=== PATIENT | male | born 2000 | race Two or more races ===

== ENCOUNTER 2024-04-14 14:52 | Observation (INO) | payer BC, SELFPAY ==
[2024-04-14 14:54] VITALS: BMI 35.4
[2024-04-14 15:30] VITALS: BP 167/91; PULSE 115; RESP 18; TEMP 37; O2SAT 97; BMI 41.7
--- NOTE | 2024-04-14 15:36 | EDRME_ITS ---
Rapid Medical Screening Exam [facility] Arrival date/time: 04/14/24 14:52 24-year-old male with complaints of dry mouth, polydipsia and polyuria presents emergency department today with complaints of feeling weak and disturbances in vision patient reports he checked his blood sugar at home was elevated Chief Complaint: Dizziness Vital signs: Vital Signs Temperature 98.6 F 04/14/24 15:30 Pulse Rate 115 H 04/14/24 15:30 Respiratory Rate 18 04/14/24 15:30 Blood Pressure 167/91 H 04/14/24 15:30 Pulse Oximetry (%) 97 04/14/24 15:30 Oxygen Delivery Method Room Air 04/14/24 15:30
[2024-04-14 15:59] LABS: O2 Saturation, Venous 50 % (96-97); PO2, Venous 28 mmHg (15-58); pH, Venous 7.34 (7.33-7.66)
[2024-04-14 16:00] LABS: Collection Type, Urine Clean Catch; Squamous Epithelial Cell,Urine 0 /hpf (0-5)
[2024-04-14 16:01] LABS: Basophils # (Auto) 0.1 Thou/mm3 (0.0-0.2); Basophils % (Auto) 2 % (0-2.5); Eosinophils # (Auto) 0.3 Thou/mm3 (0.0-0.5); Eosinophils % (Auto) 4 % (0-10); Hematocrit 43.3 % (41.0-53.0); Hemoglobin 15.2 g/dL (13.5-16.0); Immature Granulocytes % (Auto) 0 % (0-0); Immature Granulocytes Auto 0.02 Thou/mm3 (0.00-0.00); Lymphocytes # (Auto) 2.4 Thou/mm3 (1.0-4.8); Lymphocytes % (Auto) 32 % (10-50); Mean Corpuscular HGB Conc 35.1 g/dl (31.0-37.0); Mean Corpuscular Hemoglobin 29.3 pg (25.0-35.0); Mean Corpuscular Volume 83 fL (80-100); Monocytes # (Auto) 0.5 Thou/mm3 (0.0-0.8); Monocytes % (Auto) 6 % (0-12); Neutrophils # (Auto) 4.1 Thou/mm3 (1.8-7.7); Neutrophils % (Auto) 56 % (37-80); Nucleated Red Blood Cell % 0 /100 WBC (0); Platelet Count 221 Thou/mm3 (140-440); RDW Standard Deviation 37.2 fL (35.1-43.9); Red Blood Count 5.19 Miln/mm3 (4.50-5.90); White Blood Count 7.3 Thou/mm3 (3.8-10.6)
[2024-04-14 16:09] LABS: Bilirubin,Urine Negative (Negative); Blood,Urine Negative (Negative); Budding Yeast,Urine Present; Clarity,Urine Clear (Clear/Hazy); Color,Urine Lt-Yellow (Lt Yel-Yel); Culture Indicated,Urine Not Indicated; Glucose, Urine 4+ (Negative); Ketones,Urine 3+ (Negative); Leukocyte Esterase,Urine Negative (Negative); Nitrite,Urine Negative (Negative); PH,Urine 5.5 (5.0-7.0); Protein,Urine Trace (Neg - Trace); RBC,Urine 2 /hpf (0-3); Specific Gravity,Urine 1.046 (1.001-1.035); Urobilinogen,Urine Negative mg/dL (0.0-1.0); WBC,Urine < 1 /hpf (0-5)
[2024-04-14 16:11] LABS: Beta Hydroxybutyrate 3.6 mmol/L (<0.6)
[2024-04-14 16:12] LABS: Base Excess, Venous -2 (-3-3); PCO2, Venous 44 mmHg (36-56)
[2024-04-14 16:18] LABS: Glucose Estimated Average 263 mg/dL (80-131); Hemoglobin A1C 10.8 % Hgb (4.8-6.0)
[2024-04-14 16:32] LABS: Alanine Aminotransferase 125 U/L (10-49); Albumin, Serum 5.4 gm/dL (3.5-5.0); Albumin/Globulin Ratio 1.7 (1.2-2.2); Alkaline Phosphatase 216 U/L (46-116); Anion Gap 14 (7-16); Aspartate Amino Transferase 62 U/L (0-34); BUN/Creatinine Ratio 10 Ratio (12-20); Bilirubin,Total 0.6 mg/dL (0.3-1.2); Blood Urea Nitrogen 10 mg/dL (9-23); Carbon Dioxide 21.3 mMol/L (20.0-31.0); Chloride 100 mMol/L (98-107); Estimated Creatinine Clearance 124.9 mL/min (>60); Globulin 3.1 gm/dL (2.3-3.5); Osmolality,Calculated 287 (275-295); Potassium 4.3 mMol/L (3.4-5.1); Sodium 135 mMol/L (136-145); Total Protein 8.5 gm/dL (5.7-8.2); eGFR > 60 See Note
[2024-04-14 16:33] LABS: Glucose 431 mg/dL (74-106)
--- NOTE | 2024-04-14 16:35 | XR_ITS ---
EXAMINATION: US gall bladder ORDERING PROVIDER: Dilshad WHITESIDE), DARIUS HISTORY: Chest pain and dizziness x4 days. TECHNIQUE: Multiplanar still ultrasonography of the right upper quadrant was performed using grayscale imaging, supplemented by color and spectral Doppler as needed. COMPARISON: None. FINDINGS: Liver: Diffuse increased echogenicity. 17.6 cm length. No focal lesion identified. Gallbladder: Mostly decompressed. No intraluminal lesion identified. No wall thickening. No pericholecystic fluid. Biliary system: No biliary ductal dilatation. Common bile duct: 0.4 cm. Pancreas: Obscured by bowel gas. Vascular: Normal hepatopetal flow in the portal vein. Triphasic waveform hepatic veins. IVC patent. Other: No ascites or mass. IMPRESSION: 1. No sonographic findings for acute cholecystitis. 2. Hepatomegaly and diffuse increased echogenicity of the liver, nonspecific, but can be seen with hepatic steatosis.
[2024-04-14 16:57] LABS: Triglycerides 267 mg/dL (30-150)
[2024-04-14 17:34] VITALS: BP 146/112; PULSE 100; RESP 18; TEMP 36.9; O2SAT 96
[2024-04-14 17:41] VITALS: BP 162/110; PULSE 106; RESP 20; O2SAT 98
--- NOTE | 2024-04-14 17:43 | EDNOTE_ITS ---
ED General RME/HPI General Chief complaint: Dizziness Stated complaint: DIZZINESS AND VISION CHANGES X4 DAYS Time Seen by Provider: 04/14/24 18:32 Arrival date/time: 04/14/24 14:52 RME / HPI RME / HPI narrative: 04/14/24 14:52 24-year-old male with complaints of dry mouth, polydipsia and polyuria presents emergency department today with complaints of feeling weak and disturbances in vision patient reports he checked his blood sugar at home was elevated DR. ANTUNEZ MAIN ED EVALUATION: 24 year old male presents to the Emergency Department brought in by the aunt with complaints of feeling dehydrated, polydipsia, dizziness and generalized weakness. Symptoms are moderate. Patient also reports blurred vision. He took his blood glucose at home with his uncle and it was 496. No nausea or vomiting. No known history of diabetes. Related Data Previous Rx's ?Medication ?Instructions ?Recorded blood sugar diagnostic (Blood #50 ea 04/15/24 Glucose Test strips) blood-glucose meter #1 ea 04/15/24 blood-glucose meter,continuous #1 ea 04/15/24 (FreeStyle Ashlee 3 Norton) blood-glucose sensor (FreeStyle #2 ea 04/15/24 Ashlee 3 Plus Sensor device) insulin glargine 100 unit/mL (3 20 unit (0.2 mL) subcu t HS E11.65 04/15/24 mL) subcutaneous pen (Lantus #15 mL Solostar U-100 Insulin) lancets 17 gauge #100 ea 04/15/24 metformin 500 mg tablet,extended 500 mg PO BID 1 month #60 tabs 04/15/24 release 24 hr pen needle, diabetic 30 gauge x #1,200 ea 04/15/24 5/16 Allergies Allergy/AdvReac Type Severity Reaction Status Date / Time No Known Allergies Allergy Verified 04/14/24 14:54 Review of Systems Review of Systems Systems Reviewed: All systems reviewed, normal except as documented Narrative Review of Systems: GEN: No fever, no chills, no weight loss, + feeling dehydrated, + polydipsia EYES: No discharge, + blurred vision, no pain HEENT: No ear pain, no congestion, no sore throat PULM: No shortness of breath, no cough, no congestion CV: No chest pain, no dyspnea on exertion, no palpitations GI: No nausea, no vomiting, no diarrhea, no pain, no constipation : No frequency, no urgency and no dysuria MUSC/SKEL: No joint pain, no back pain SKIN: No rash PSYCH: No hallucinations, no depression HEME/LYMPH: No easy bleeding or bruising tendencies NEURO: + generalized weakness, no headache, + dizziness Past Medical History Social History SMOKING STATUS: Never smoker SUBSTANCE USE: does not use ALCOHOL: Never ED Exam Narrative Physical exam: GENERAL APPEARANCE: alert and oriented x 4, well-developed, well-nourished, no acute distress VITALS: All vitals were reviewed and the pulse ox is 98% on room air, which is normal according to my interpretation. HEENT: Normocephalic, atraumatic; pupils equal, round, reactive to light; EOMI; mucous membranes pink, moist; oropharynx clear NECK: Supple LUNGS: CTABL; no wheezes, no rales, no rhonchi HEART: Regular rate, regular rhythm; normal S1, S2; no murmurs ABDOMEN: non distended; normal BS; soft, no tenderness, no guarding, no rebound; no masses, no organomegaly, no hernia BACK: no CVA tenderness EXTREMITIES: atraumatic; no edema NEUROLOGIC: awake; alert and oriented x4; cranial nerves II-XII grossly intact; no focal sensory or motor deficits PSYCHIATRIC: appropriate mood and affect SKIN: warm, dry, normal color; no rashes Course Course Course Narrative: 1800: Patient was signed out to Dr. Soto. Past medical, surgical, social and family history reviewed. Vitals and home medications reviewed. Results and treatment plan discussed. They will assume the care of the patient at this time and will follow the patient, pending remainder of labs and final disposition. Quality Measures none Orders Category Date Time Status Bedside Blood Glucose NOW Care 04/14/24 15:36 Completed Bedside Blood Glucose STAT Care 04/14/24 18:38 Completed COVID-19 Screening Questionnaire NOW Care 04/14/24 18:39 Completed Cementer Machine Applicator STAT Care 04/14/24 18:38 Completed DKA Protocol QSHIFT Care 04/14/24 18:38 Completed Decision to Admit X1 Care 04/14/24 18:39 Completed Insert IV STAT Care 04/14/24 18:38 Completed US gall bladder Stat Exams 04/14/24 16:35 Completed A1C [Glycohemoglobin w (eAG)] Stat Lab 04/14/24 15:53 Completed Beta Hydroxybutyrate Stat Lab 04/14/24 15:53 Completed C-Peptide* Stat Lab 04/14/24 Received CBC Stat Lab 04/14/24 15:53 Completed Comprehensive Metabolic Panel Stat Lab 04/14/24 15:53 Completed Renal Function Panel Routine Lab 04/14/24 21:20 Completed Triglycerides Stat Lab 04/14/24 15:53 Completed UA, C/S IF [Urinalysis, C/S if Indicated] Stat Lab 04/14/24 15:47 Completed VBG [Venous Blood Gas] Stat Lab 04/14/24 15:53 Completed Dextrose 5%-Lactated Ringers [D5-Lr] 1,000 ml Med 04/14/24 18:38 Discontinued Pot Chl Additive [KCl Additive] 40 meq IV 250 mls/hr Dextrose 5%-Lactated Ringers [D5-Lr] 1,000 ml Med 04/14/24 18:38 Discontinued IV 250 mls/hr Dextrose 50% Syr [D50w Syringe Abboject] Med 04/14/24 18:38 Discontinued 25 ml IV PRNMRX1 PRN Insulin Regular Med 04/14/24 17:53 Discontinued 5 unit IV X1 ONE KCL 20 mEq/L in D5-LR Med 04/14/24 18:38 Discontinued 20 meq in 1,000 ml IV 250 mls/hr Magnesium Sulfate 2 GM Ivpb [Magnesium Sulfate Ivpb] Med 04/14/24 18:38 Discontinued 2 gm in 50 ml IV 25 mls/hr POT PHOS 15 mMol in NS 250 ML [Pot Phos 15 mMol in NS Med 04/14/24 18:38 Discontinued 250 ml] 15 mmol in 250 ml IV PRN POTASSIUM CHL 10 mEq IVPB [Kcl Ivpb] Med 04/14/24 18:38 Discontinued 10 meq in 100 ml IV 100 mls/hr POTASSIUM CHL 10 mEq IVPB [Kcl Ivpb] Med 04/14/24 18:38 Discontinued 10 meq in 100 ml IV PRN Pre-Mixed [Pre-mixed Bag] 1 bag Med 04/14/24 18:38 Discontinued Insulin Reg 100 Units/100 ml [Myxredlin] 100 unit IV 0.1 unit/kg/hr Ringers Lactated 1000 ml [Lactated Ringers] 1,000 ml Med 04/14/24 18:38 Discontinued Pot Chl Additive [KCl Additive] 20 meq IV 250 mls/hr Ringers Lactated 1000 ml [Lactated Ringers] 1,000 ml Med 04/14/24 18:38 Discontinued Pot Chl Additive [KCl Additive] 40 meq IV 250 mls/hr Ringers Lactated 1000 ml [Lactated Ringers] 1,000 ml Med 04/14/24 18:38 Discontinued IV 250 mls/hr Ringers Lactated 1000 ml [Lactated Ringers] 1,000 ml Med 04/14/24 19:45 Discontinued IV 999 mls/hr Sodium Bicarb 8.4% SYR Med 04/14/24 18:38 Discontinued 50 ml IV PRN PRN Sodium Chloride 0.9% 1000 ml [Ns] 1,000 ml Med 04/14/24 15:35 Discontinued IV 999 mls/hr Sodium Chloride 0.9% 1000 ml [Ns] 1,000 ml Med 04/14/24 17:38 Discontinued IV 999 mls/hr Sodium Chloride 0.9% 250 ml [Ns] 250 ml Med 04/14/24 18:38 Discontinued Sod Phos Additive [NaPhos Additive] 15 mmol IV 62.5 mls/hr Vital Signs Vital signs: Vital Signs Temperature 98.6 F 04/14/24 15:30 Pulse Rate 115 H 04/14/24 15:30 Respiratory Rate 18 04/14/24 15:30 Blood Pressure 167/91 H 04/14/24 15:30 Pulse Oximetry (%) 97 04/14/24 15:30 Oxygen Delivery Method Room Air 04/14/24 15:30 [facility] Patient data External records reviewed:: None (no previous visits) Clinical information provided by:: patient Social determinants that could affect healthcare access:: none Patient has the following chronic illnesses:: Denies any PMHx, surgeries, daily medications, or known allergies. No known diabetes history. How is presenting disease/condition affected by chronic disease/condition?: no chronic disease Evaluation data The following diagnostics were reviewed and interpreted by me:: lab results and radiology exam(s) Lab and/or radiology exams considered but not ordered:: none Interpretation Summary: Procedure(s): US gall bladder Accession Number(s): [id number] cc: Vanda (DARIUS),Dilshad MCCOY; Suhail Haynes MD; NO PRIMARY/FAMILY,PHYSICIAN~ EXAMINATION: US gall bladder ORDERING PROVIDER: Dilshad WHITESIDE), SLATER APPRENTICE HISTORY: Chest pain and dizziness x4 days. TECHNIQUE: Multiplanar still ultrasonography of the right upper quadrant was performed using grayscale imaging, supplemented by color and spectral Doppler as needed. COMPARISON: None. FINDINGS: Liver: Diffuse increased echogenicity. 17.6 cm length. No focal lesion identified. Gallbladder: Mostly decompressed. No intraluminal lesion identified. No wall thickening. No pericholecystic fluid. Biliary system: No biliary ductal dilatation. Common bile duct: 0.4 cm. Pancreas: Obscured by bowel gas. Vascular: Normal hepatopetal flow in the portal vein. Triphasic waveform hepatic veins. IVC patent. Other: No ascites or mass. IMPRESSION: 1. No sonographic findings for acute cholecystitis. 2. Hepatomegaly and diffuse increased echogenicity of the liver, nonspecific, but can be seen with hepatic steatosis. Dictated By: Suhail Haynes MD Medications Medications considered but not ordered:: none Medication administrations:: Medication Administration History Discontinued Medications Dextrose (Dextrose 50%-Water Inj 50 Ml Syringe) 25 ml IV PRNMRX1 PRN PRN Reason: Blood Sugar - Low Dextrose (Dextrose 50%-Water Inj 50 Ml Syringe) 25 ml IV Q15MIN PRN PRN Reason: BG 50-70 responsive npo pt Stop: 05/14/24 19:52 Dextrose (Dextrose 50%-Water Inj 50 Ml Syringe) 50 ml IV Q15MIN PRN PRN Reason: BG <50 OR BG <70 & pt unresponsive Stop: 05/14/24 19:52 Enoxaparin Sodium (Enoxaparin Sod Inj 40 Mg/0.4 Ml Syringe) 40 mg SC QDAY NIKKI Stop: 04/29/24 08:59 Last Admin: 04/15/24 10:01 Dose: 40 mg Documented By: CADEN Glucagon (Glucagon Inj 1 Mg Vial) 1 mg IM Q15MIN PRN PRN Reason: BG <70, and no IV access Sodium Chloride (Ns) 1,000 mls @ 999 mls/hr IV .Q1H1M ONE Stop: 04/14/24 16:35 Last Infusion: 04/14/24 18:49 Dose: Infused Documented By: Admin: 04/14/24 17:50 Dose: 999 mls/hr Documented By: SM Sodium Chloride (Ns) 1,000 mls @ 999 mls/hr IV .Q1H1M ONE Stop: 04/14/24 18:38 Last Infusion: 04/15/24 11:14 Dose: Infused Documented By: Admin: 04/14/24 18:48 Dose: 999 mls/hr Documented By: JACQUELINE Potassium Chloride (Kcl Ivpb) 10 meq in 100 mls @ 100 mls/hr IV .Q1H PRN PRN Reason: IF POTASSIUM LESS THAN 3.3 Stop: 05/14/24 18:37 Magnesium Sulfate (Magnesium Sulfate Ivpb) 2 gm in 50 mls @ 25 mls/hr IV .Q2H PRN PRN Reason: PER DKA PROTOCOL Stop: 05/14/24 18:37 Insulin Human Regular 100 unit (/ IV Miscellaneous Supplies) 100 mls @ 10.682 mls/hr IV .Q9H22M PRN; Protocol PRN Reason: PER PROTOCOL Stop: 05/14/24 18:37 Dextrose/Lactated Ringer's (D5-Lr) 1,000 mls @ 250 mls/hr IV .Q4H PRN PRN Reason: PER PROTOCOL Stop: 05/14/24 18:37 Lactated Ringer's (Lactated Ringers) 1,000 mls @ 250 mls/hr IV .Q4H PRN PRN Reason: PER PROTOCOL Stop: 04/15/24 18:37 Potassium Chloride 20 meq/ (Lactated Ringer's) 1,010 mls @ 250 mls/hr IV .Q4H3M PRN PRN Reason: K LEVEL 3.3 TO 5.3mM/L Stop: 05/14/24 18:37 Potassium Chloride 40 meq/ (Lactated Ringer's) 1,020 mls @ 250 mls/hr IV .Q4H5M PRN PRN Reason: K LEVEL < 3.3 mM/L Stop: 05/14/24 18:37 Potassium Chloride 40 meq/ (Dextrose/Lactated Ringer's) 1,020 mls @ 250 mls/hr IV .Q4H5M PRN PRN Reason: K LEVEL < 3.3mM/L Stop: 05/14/24 18:37 Potassium Cl/Dextrose/Lact Ringer's (Kcl 20 Meq/L In D5-Lr) 20 meq in 1,000 mls @ 250 mls/hr IV .Q4H PRN PRN Reason: K LEVEL 3.3 TO 5.3 mM/L Stop: 05/14/24 18:37 Potassium Chloride (Kcl Ivpb) 10 meq in 100 mls @ 50 mls/hr IV PRN PRN PRN Reason: K LEVEL 3.3 to 5.3 & BG > 200 Stop: 05/14/24 18:37 Potassium Phosphate (Pot Phos 15 Mmol In Ns 250 Ml) 15 mmol in 250 mls @ 62.5 mls/hr IV PRN PRN PRN Reason: Phosphate <= 1mg/dL Stop: 05/14/24 18:37 Sodium Phosphate 15 mmol/ (Sodium Chloride) 255 mls @ 62.5 mls/hr IV .Q4H5M PRN PRN Reason: Phosphate <= 1mg/dL and K> than 5.3 Stop: 05/14/24 18:37 Lactated Ringer's (Lactated Ringers) 1,000 mls @ 999 mls/hr IV .Q1H1M ONE Stop: 04/14/24 20:45 Lactated Ringer's (Lactated Ringers) 2,000 mls @ 999 mls/hr IV .Q2H1M ONE Stop: 04/14/24 21:45 Last Infusion: 04/15/24 11:14 Dose: Infused Documented By: Admin: 04/14/24 21:00 Dose: 999 mls/hr Documented By: CONCEPCION Insulin Glargine (Insulin Glargine (Lantus) 5 Unit/0.05 Ml (Per 5 Units)) 15 unit SC X1 ONE Stop: 04/14/24 19:54 Last Admin: 04/14/24 20:28 Dose: 15 unit Documented By: CONCEPCION Co-signed By: EE Insulin Glargine (Insulin Glargine (Lantus) 5 Unit/0.05 Ml (Per 5 Units)) 15 unit SC QDAY NIKKI Stop: 05/15/24 08:59 Last Admin: 04/15/24 09:55 Dose: 15 unit Documented By: CADEN Co-signed By: DA Insulin Human Lispro (Insulin Lispro (Admelog) 1 Unit/0.01 Ml Unit) 0 unit SC AC [facility]; Protocol Stop: 05/15/24 07:29 Insulin Human Lispro (Insulin Lispro (Admelog) 1 Unit/0.01 Ml Unit) 0 unit SC Q6HR NIKKI; Protocol Stop: 05/14/24 22:44 Last Admin: 04/15/24 07:28 Dose: Not Given Documented By: VL Non-Admin Reason: Cancelled by Provider Admin: 04/15/24 07:28 Dose: Not Given Documented By: VL Non-Admin Reason: Cancelled by Provider Insulin Human Lispro (Insulin Lispro (Admelog) 1 Unit/0.01 Ml Unit) 0 unit SC ACHS [facility]; Protocol Stop: 05/15/24 07:29 Last Admin: 04/15/24 11:25 Dose: 3 unit Documented By: VL Co-signed By: Admin: 04/15/24 07:19 Dose: 2 unit Documented By: CADEN Co-signed By: YUE Insulin Human Regular (Insulin Hum Regular 1 Unit/0.01 Ml (Per Unit)) 5 unit IV X1 ONE Stop: 04/14/24 17:54 Last Admin: 04/14/24 18:23 Dose: 5 unit Documented By: JACQUELINE Co-signed By: KATHERINE Ondansetron HCl (Ondansetron Inj 2 Mg/Ml Inj 2 Ml) 4 mg IV Q6H PRN; Protocol PRN Reason: NAUSEA OR VOMITING Stop: 05/14/24 19:47 Sodium Bicarbonate (Sodium Bicarb Inj 8.4% Syr 50 Ml Syringe) 50 ml IV PRN PRN PRN Reason: For ph <= to 7.0 Stop: 05/14/24 18:37 see above Consultations Consultation(s) initiated? (list below): No Diagnosis Differential Diagnosis ED Complaint MDM: hyperglycemia, DKA, dehydration, electrolyte imbalance Most likely diagnosis given after review of the tests above:: See below. Admission Indicated Admission indicated?: not indicated Explain why admission is indicated or not indicated:: No final disposition plan at this time, patient signout to the night shift manager provider. Admission Request Was there a request for admission?: No Disposition Plan Disposition Plan: other (specify) (patient signout to the night shift manager provider.) Medical Decision Making MDM Narrative MDM Narrative: Almaz Morgan am scribing for and in the presence of Dr. Antunez. Differential Diagnosis Differential Diagnosis: hyperglycemia, DKA, dehydration, electrolyte imbalance Lab Data 04/15/24 05:36 04/15/24 05:36 Labs: Lab Results 04/14/24 04/14/24 Range/Units 15:47 15:53 WBC 7.3 (3.8-10.6) Thou/mm3 RBC 5.19 (4.50-5.90) Miln/mm3 Hgb 15.2 (13.5-16.0) g/dL Hct 43.3 (41.0-53.0) % MCV 83 (80-100) fL MCH 29.3 (25.0-35.0) pg MCHC 35.1 (31.0-37.0) g/dl RDW Std Deviation 37.2 (35.1-43.9) fL Plt Count 221 (140-440) Thou/mm3 Neut % (Auto) 56 (37-80) % Lymph % (Auto) 32 (10-50) % [place] % (Auto) 6 (0-12) % Eos % (Auto) 4 (0-10) % Baso % (Auto) 2 (0-2.5) % Neut # (Auto) 4.1 (1.8-7.7) Thou/mm3 Lymph # (Auto) 2.4 (1.0-4.8) Thou/mm3 [place] # (Auto) 0.5 (0.0-0.8) Thou/mm3 Eos # (Auto) 0.3 (0.0-0.5) Thou/mm3 Baso # (Auto) 0.1 (0.0-0.2) Thou/mm3 Immature Gran # (Auto) 0.02 H (0.00-0.00) Thou/mm3 Absolute Nucleated RBC 0.00 (0.00-0.00) Thou/mm3 Immature Gran % 0 (0-0) % Nucleated RBC % 0 (0) /100 WBC VBG pH 7.34 (7.33-7.66) VBG pCO2 44 (36-56) mmHg VBG pO2 28 (15-58) mmHg VBG O2 Sat (Yasmany) 50 L (96-97) % VBG Base Excess -2 (-3-3) Sodium 135 L (136-145) mMol/L Potassium 4.3 (3.4-5.1) mMol/L Chloride 100 (98-107) mMol/L Carbon Dioxide 21.3 (20.0-31.0) mMol/L Anion Gap 14 (7-16) BUN 10 (9-23) mg/dL Creatinine 1.0 (0.6-1.3) mg/dL Estim Creat Clear Calc 124.9 (>60) mL/min eGFR > 60 (60 - ) See Note BUN/Creatinine Ratio 10 L (12-20) Ratio Glucose 431 H* (74-106) mg/dL Estimated Ave Glu mg/dL 263 H (80-131) mg/dL Hemoglobin A1c 10.8 H (4.8-6.0) % Hgb Calculated Osmolality 287 (275-295) Calcium 10.0 (8.3-10.6) mg/dL Corrected Calcium 10.0 (8.5-10.1) mg/dL Total Bilirubin 0.6 (0.3-1.2) mg/dL AST 62 H (0-34) U/L ALT 125 H (10-49) U/L Alkaline Phosphatase 216 H (46-116) U/L Total Protein 8.5 H (5.7-8.2) gm/dL Albumin 5.4 H (3.5-5.0) gm/dL Globulin 3.1 (2.3-3.5) gm/dL Albumin/Globulin Ratio 1.7 (1.2-2.2) Triglycerides 267 H (30-150) mg/dL Beta-Hydroxybutyrate/Acetoacetate 3.6 H (<0.6) mmol/L Ur Collection Type Clean Catch Urine Color Lt-Yellow (Lt Yel-Yel) Urine Clarity Clear (Clear/Hazy) Urine pH 5.5 (5.0-7.0) Ur Specific [place] 1.046 H (1.001-1.035) Urine Protein Trace (Neg - Trace) Urine Glucose (UA) 4+ A (Negative) Urine Ketones 3+ A (Negative) Urine Blood Negative (Negative) Urine Nitrite Negative (Negative) Urine Bilirubin Negative (Negative) Urine Urobilinogen (Auto) Negative (0.0-1.0) mg/dL Ur Leukocyte Esterase Negative (Negative) Urine RBC 2 (0-3) /hpf Urine WBC < 1 (0-5) /hpf Ur Squamous Epith Cells 0 (0-5) /hpf Urine Bacteria None (None) Urine Yeast (Budding) Present A (None) Ur Culture Indicated? Not Indicated Discharge Plan Plan Patient Disposition: Admit Acute Care w/in Hospital Patient condition on transfer: Stable Problem List Clinical Impression: Newly diagnosed diabetes Patient/Caregiver Discharge Instructions Diet Instructions: Focus on non-starchy vegetables: Fill at least half of your plate with vegetables, such as broccoli, spinach, and carrots. Choose whole grains: Opt for whole-wheat bread, brown rice, quinoa, and oats. Include lean protein: Consume lean meats, fish, eggs, beans, and tofu. Select healthy fats: Choose fats from sources like nuts, seeds, avocado, and olive oil. Limit sugary drinks and processed foods: Avoid sugary sodas, juices, candy, and pastries. Moderate carbohydrate intake: Pay attention to the amount of carbohydrates you consume and choose lower-glycemic index options. Consider a Mediterranean-style diet: This diet emphasizes fruits, vegetables, whole grains, fish, and olive oil. Sample Meal Plan: Breakfast: Oatmeal with berries and nuts Lunch: Salad with grilled chicken or fish, vegetables, and a low-fat dressing Dinner: Combes with roasted vegetables and brown rice Snacks: [place] yogurt with fruit, trail mix, or vegetable sticks with hummus
[2024-04-14] MEDS: SODIUM CHLORIDE 0.9% 1000 ML 1,000 ML 999 ML IV ×2 (17:50→18:48)
[2024-04-14] MEDS: INSULIN HUM REGULAR 1 UNIT/0.01 ML (PER UNIT) 5 UNIT IV (18:23)
--- NOTE | 2024-04-14 18:50 | PD.EDADDENDU ---
Emergency Room Addendum <Guerda Soto MD - Last Filed: 04/14/24 20:07> Addendum Narrative: Care assumed from Dr. Antunez, the previous shift emergency physician. Past medical, surgical, social and family history reviewed. Vitals and home medications reviewed. Results and treatment plan discussed. I will assume the care of the patient at this time and will follow the patient, pending admission. White count is 7.3, hemoglobin 15/43. Platelets 221. VBG 7.34, pCO2 44. pO2 28. Potassium is 4.3. Bicarb is 21. Gap is 14. Creatinine 1.0. Glucose is 431. Hemoglobin A1c is 10. Beta-hydroxybutyrate 3.6. Patient needs to be started on a insulin drip and admitted to the ICU. 183: Discussed with the medicine resident who will make the 1899 team aware that the patient will need to be admitted, I have ordered a bed and will await for the ICU team to call me at 1900. <Candace Sierra - Last Filed: 04/15/24 00:05> Addendum Narrative: 1800: Care assumed from Dr. Antunez, the previous shift emergency physician. Past medical, surgical, social and family history reviewed. Vitals and home medications reviewed. Results and treatment plan discussed. I will assume the care of the patient at this time and will follow the patient, pending admission. White count is 7.3, hemoglobin 15/43. Platelets 221. VBG 7.34, pCO2 44. pO2 28. Potassium is 4.3. Bicarb is 21. Gap is 14. Creatinine 1.0. Glucose is 431. Hemoglobin A1c is 10. Beta-hydroxybutyrate 3.6. Patient needs to be started on a insulin drip and admitted to the ICU. 1830: Discussed with the medicine resident who will make the 1899 team aware that the patient will need to be admitted, I have ordered a bed and will await for the ICU team to call me at 1900. 1900: Patient is adimtted. Attestation <Candace Sierra - Last Filed: 04/15/24 00:05> Attestation Scribe Attestation: I, Kanchan Sierra, am scribing for and in the presence of Dr. Soto. Provider Notation: Although this document has been carefully reviewed, there may still be some phonetic and other typographical errors. These errors are purely grammatical due to imperfections in the software program and should not be construed in any way to compromise the substance of the patient's medical care during this visit.
[2024-04-14 18:52] VITALS: BP 146/95; PULSE 96; RESP 20; O2SAT 99
--- NOTE | 2024-04-14 19:57 | ESHP_ITS ---
<Statement entered by Javon Alba MD - 04/18/24 05:01> 24-year-old male with no previous medical history presented to signs and symptoms of hypoglycemia found to have paroxysmal diabetes mellitus, transaminitis and hypertriglyceridemia. Will admit the patient overnight for tighter blood sugar control and anticipate discharge tomorrow morning.I reviewed above note and agree with findings and plans. I have also personally examined the patient with medicine team and went over assessment and plan with medical team including analysis internship and resident physician. Documentation for date of: 04/14/24 HPI History of Present Illness Chief complaint: Generalized weakness History of present illness: 24 year old male patient with no PMHx presented to ED with complaint of dehydration, polydipsia, dizziness and generalized weakness. Symptoms are moderate. Patient also reports blurred vision. Home blood glucose 496. Denies nausea, vomiting, previous history of diabetes. Vitals on admission were stable, initial labs on admission were noted glucose 431, AST 62, ALT 125, ALP 216, TG 267, BHB 3.6, normal VBG, in ED patient was given 1L of NS bolus and received 5 units of IV insulin, initially patient was started on DKA protocol blood was discontinued as patient's initial labs were not consistent with DKA patient will be admitted to floor for new onset diabetes requiring further management and care. Review of Systems Review of Systems Systems Reviewed: All systems reviewed, normal except as documented Past Medical History Family History FAMILY HISTORY: Positive Family Cardiac Disorders (Hypertension) and Family Endocrine Disorders (Diabetes) Social History SMOKING STATUS: Never smoker SUBSTANCE USE: does not use ALCOHOL: Never Exam Vital Signs Temp Pulse Resp BP Pulse Ox O2 Del Method 98.4 F 96 20 146/95 H 99 Room Air 04/14/24 17:34 04/14/24 18:52 04/14/24 18:52 04/14/24 18:52 04/14/24 18:52 04/14/24 18:52 Narrative Exam General: Morbidly obese, laying in bed, not in acute distress, answering questions appropriately, making appropriate eye contact HEENT: Normocephalic, atraumatic, EOMI, PERRLA, moist oral mucosa, normal dentition. Cardiac: Regular rate and rhythm, normal S1/S2, no murmurs. Lungs: Clear to auscultation with no wheezings or crackles, normal respiratory effort and rate. Abdomen: Soft, nontender, nondistended, positive bowel sounds in all quadrants. No guarding or rebound tenderness. Neuro: Alert and oriented to name and date of and place. CN II- XII intact, no focal motor deficit noted, BUE/BLE motor function and sensation intact and equal. Extremities: Normal to inspection, no edema, no cyanosis Psych: Normal mood and affect. Results: Labs 04/14/24 15:53 04/14/24 21:20 Labs: Short CBC 04/14/24 Range/Units 15:53 WBC 7.3 (3.8-10.6) Thou/mm3 Hgb 15.2 (13.5-16.0) g/dL Hct 43.3 (41.0-53.0) % Plt Count 221 (140-440) Thou/mm3 BMP 04/14/24 15:53 Sodium 135 L Potassium 4.3 Chloride 100 Carbon Dioxide 21.3 BUN 10 Creatinine 1.0 Glucose 431 H* Calcium 10.0 Liver Function 04/14/24 Range/Units 15:53 Total Bilirubin 0.6 (0.3-1.2) mg/dL AST 62 H (0-34) U/L ALT 125 H (10-49) U/L Alkaline Phosphatase 216 H (46-116) U/L Albumin 5.4 H (3.5-5.0) gm/dL Urine 04/14/24 Range/Units 15:47 Urine Color Lt-Yellow (Lt Yel-Yel) Urine Clarity Clear (Clear/Hazy) Urine pH 5.5 (5.0-7.0) Ur Specific [place] 1.046 H (1.001-1.035) Urine Protein Trace (Neg - Trace) Urine Glucose (UA) 4+ A (Negative) ABG Interpretation ABG results: 04/14/24 15:53 VBG pH 7.34 VBG pCO2 44 VBG pO2 28 VBG Base Excess -2 Quality Measures Quality Measures none Medications Home Medications and Allergies Allergies Allergy/AdvReac Type Severity Reaction Status Date / Time No Known Allergies Allergy Verified 04/14/24 14:54 Visit Medications Dextrose (Dextrose 50%-Water Inj 50 Ml Syringe) 25 ml IV Q15MIN PRN PRN Reason: BG 50-70 responsive npo pt Stop: 05/14/24 19:52 Dextrose (Dextrose 50%-Water Inj 50 Ml Syringe) 50 ml IV Q15MIN PRN PRN Reason: BG <50 OR BG <70 & pt unresponsive Stop: 05/14/24 19:52 Enoxaparin Sodium (Enoxaparin Sod Inj 40 Mg/0.4 Ml Syringe) 40 mg SC QDAY NIKKI Stop: 04/29/24 08:59 Glucagon (Glucagon Inj 1 Mg Vial) 1 mg IM Q15MIN PRN PRN Reason: BG <70, and no IV access Lactated Ringer's (Lactated Ringers) 2,000 mls @ 999 mls/hr IV .Q2H1M ONE Stop: 04/14/24 21:45 Insulin Glargine (Insulin Glargine (Lantus) 5 Unit/0.05 Ml (Per 5 Units)) 15 unit SC X1 ONE Stop: 04/14/24 19:54 Insulin Glargine (Insulin Glargine (Lantus) 5 Unit/0.05 Ml (Per 5 Units)) 15 unit SC QDAY NIKKI Stop: 05/15/24 08:59 Insulin Human Lispro (Insulin Lispro (Admelog) 1 Unit/0.01 Ml Unit) 0 unit SC AC NIKKI; Protocol Stop: 05/15/24 07:29 Ondansetron HCl (Ondansetron Inj 2 Mg/Ml Inj 2 Ml) 4 mg IV Q6H PRN; Protocol PRN Reason: NAUSEA OR VOMITING Stop: 05/14/24 19:47 Discontinued Medications Dextrose (Dextrose 50%-Water Inj 50 Ml Syringe) 25 ml IV PRNMRX1 PRN PRN Reason: Blood Sugar - Low Sodium Chloride (Ns) 1,000 mls @ 999 mls/hr IV .Q1H1M ONE Stop: 04/14/24 16:35 Last Infusion: 04/14/24 18:49 Dose: Infused Sodium Chloride (Ns) 1,000 mls @ 999 mls/hr IV .Q1H1M ONE Stop: 04/14/24 18:38 Last Admin: 04/14/24 18:48 Dose: 999 mls/hr Potassium Chloride (Kcl Ivpb) 10 meq in 100 mls @ 100 mls/hr IV .Q1H PRN PRN Reason: IF POTASSIUM LESS THAN 3.3 Stop: 05/14/24 18:37 Magnesium Sulfate (Magnesium Sulfate Ivpb) 2 gm in 50 mls @ 25 mls/hr IV .Q2H PRN PRN Reason: PER DKA PROTOCOL Stop: 05/14/24 18:37 Insulin Human Regular 100 unit (/ IV Miscellaneous Supplies) 100 mls @ 10.682 mls/hr IV .Q9H22M PRN; Protocol PRN Reason: PER PROTOCOL Stop: 05/14/24 18:37 Dextrose/Lactated Ringer's (D5-Lr) 1,000 mls @ 250 mls/hr IV .Q4H PRN PRN Reason: PER PROTOCOL Stop: 05/14/24 18:37 Lactated Ringer's (Lactated Ringers) 1,000 mls @ 250 mls/hr IV .Q4H PRN PRN Reason: PER PROTOCOL Stop: 04/15/24 18:37 Potassium Chloride 20 meq/ (Lactated Ringer's) 1,010 mls @ 250 mls/hr IV .Q4H3M PRN PRN Reason: K LEVEL 3.3 TO 5.3mM/L Stop: 05/14/24 18:37 Potassium Chloride 40 meq/ (Lactated Ringer's) 1,020 mls @ 250 mls/hr IV .Q4H5M PRN PRN Reason: K LEVEL < 3.3 mM/L Stop: 05/14/24 18:37 Potassium Chloride 40 meq/ (Dextrose/Lactated Ringer's) 1,020 mls @ 250 mls/hr IV .Q4H5M PRN PRN Reason: K LEVEL < 3.3mM/L Stop: 05/14/24 18:37 Potassium Cl/Dextrose/Lact Ringer's (Kcl 20 Meq/L In D5-Lr) 20 meq in 1,000 mls @ 250 mls/hr IV .Q4H PRN PRN Reason: K LEVEL 3.3 TO 5.3 mM/L Stop: 05/14/24 18:37 Potassium Chloride (Kcl Ivpb) 10 meq in 100 mls @ 50 mls/hr IV PRN PRN PRN Reason: K LEVEL 3.3 to 5.3 & BG > 200 Stop: 05/14/24 18:37 Potassium Phosphate (Pot Phos 15 Mmol In Ns 250 Ml) 15 mmol in 250 mls @ 62.5 mls/hr IV PRN PRN PRN Reason: Phosphate <= 1mg/dL Stop: 05/14/24 18:37 Sodium Phosphate 15 mmol/ (Sodium Chloride) 255 mls @ 62.5 mls/hr IV .Q4H5M PRN PRN Reason: Phosphate <= 1mg/dL and K> than 5.3 Stop: 05/14/24 18:37 Lactated Ringer's (Lactated Ringers) 1,000 mls @ 999 mls/hr IV .Q1H1M ONE Stop: 04/14/24 20:45 Insulin Human Regular (Insulin Hum Regular 1 Unit/0.01 Ml (Per Unit)) 5 unit IV X1 ONE Stop: 04/14/24 17:54 Last Admin: 04/14/24 18:23 Dose: 5 unit Sodium Bicarbonate (Sodium Bicarb Inj 8.4% Syr 50 Ml Syringe) 50 ml IV PRN PRN PRN Reason: For ph <= to 7.0 Stop: 05/14/24 18:37 Assessment & Plan Plan 24 year old male patient with no PMHx presented to ED with complaint of dehydration, polydipsia, dizziness and generalized weakness. Symptoms are moderate. Patient also reports blurred vision. Home blood glucose 496. Denies nausea, vomiting, or previous history of diabetes, but does endorse polydipsia and polyuria. Vitals on admission were stable, initial labs on admission were noted glucose 431, AST 62, ALT 125, ALP 216, TG 267, BHB 3.6, normal VBG, in ED patient was given 1L of NS bolus and received 5 units of IV insulin, initially patient was started on DKA protocol blood was discontinued as patient's initial labs were not consistent with DKA patient will be admitted to floor for new onset diabetes requiring further management and care. #New onset DM Patient started on insulin glargine 15 units daily. Patient started on insulin sliding scale. Follow-up bedside glucose Q4hr. Patient tolerating diet, will be started on carb consistent diet. A1c noted to be 10.8 Patient will require diabetic education prior to discharge. Patient will require follow-up on antiislet antibodies, insulin antibodies, PAMELA antibodies. #Elevated LFTs Liver US only noted for hepatic steatosis. Possibly in settings of dehydration. Follow-up repeat LFTs in a.m. Consider further workup if remains elevated with viral panel. #Hypertriglyceridemia Lifestyle modification with dietary changes/exercise. Follow-up outpatient for repeat labs and possible initiation of TG lowering medications. DVT prophylaxis; enoxaparin Diet; carb consistent diet Patient's plan of care discussed with attending Dr. Anjali Wolf, PGY-3
[2024-04-14 20:09] VITALS: BP 135/85; PULSE 102; RESP 17; TEMP 37.1; O2SAT 98
[2024-04-14] MEDS: INSULIN GLARGINE (Lantus) 5 UNIT/0.05 ML (PER 5 UNITS) 15 UNIT SC (20:28)
[2024-04-14] MEDS: RINGERS LACTATED 1000 ML 2,000 ML 999 ML IV (21:00)
[2024-04-14 22:00] VITALS: BP 147/99; PULSE 105; RESP 28; TEMP 36.9; O2SAT 98
[2024-04-14 22:20] LABS: Albumin, Serum 3.9 gm/dL (3.5-5.0); Anion Gap 10 (7-16); BUN/Creatinine Ratio 11 Ratio (12-20); Blood Urea Nitrogen 9 mg/dL (9-23); Calcium 8.3 mg/dL (8.3-10.6); Calcium (Corrected) 8.4 mg/dL (8.5-10.1); Carbon Dioxide 20.6 mMol/L (20.0-31.0); Chloride 106 mMol/L (98-107); Creatinine (Component) 0.8 mg/dL (0.6-1.3); Estimated Creatinine Clearance 156.1 mL/min (>60); Glucose 333 mg/dL (74-106); Osmolality,Calculated 285 (275-295); Phosphorous 3.1 mg/dL (2.4-5.1); Potassium 4.3 mMol/L (3.4-5.1); Sodium 137 mMol/L (136-145); eGFR > 60 See Note
[2024-04-15] VITALS: BP 127/83; PULSE 93; RESP 24; TEMP 37.2; O2SAT 97
[2024-04-15 04:00] VITALS: BP 132/87; PULSE 84; RESP 23; TEMP 36.1; O2SAT 97
[2024-04-15 05:54] VITALS: BMI 42.4
[2024-04-15 06:29] LABS: Anion Gap 11 (7-16); BUN/Creatinine Ratio 13 Ratio (12-20); Blood Urea Nitrogen 9 mg/dL (9-23); Calcium 8.7 mg/dL (8.3-10.6); Calcium (Corrected) 8.7 mg/dL (8.5-10.1); Chloride 106 mMol/L (98-107); Creatinine (Component) 0.7 mg/dL (0.6-1.3); Estimated Creatinine Clearance 180.2 mL/min (>60); Glucose 246 mg/dL (74-106); Osmolality,Calculated 286 (275-295); Phosphorous 3.3 mg/dL (2.4-5.1); Potassium 3.7 mMol/L (3.4-5.1); Sodium 140 mMol/L (136-145); eGFR > 60 See Note
[2024-04-15 06:30] LABS: Basophils # (Auto) 0.1 Thou/mm3 (0.0-0.2); Basophils % (Auto) 2 % (0-2.5); Eosinophils # (Auto) 0.5 Thou/mm3 (0.0-0.5); Eosinophils % (Auto) 8 % (0-10); Hematocrit 34.5 % (41.0-53.0); Hemoglobin 12.2 g/dL (13.5-16.0); Immature Granulocytes % (Auto) 0 % (0-0); Immature Granulocytes Auto 0.01 Thou/mm3 (0.00-0.00); Lymphocytes # (Auto) 2.8 Thou/mm3 (1.0-4.8); Lymphocytes % (Auto) 46 % (10-50); Mean Corpuscular HGB Conc 35.4 g/dl (31.0-37.0); Mean Corpuscular Hemoglobin 29.7 pg (25.0-35.0); Mean Corpuscular Volume 84 fL (80-100); Monocytes # (Auto) 0.5 Thou/mm3 (0.0-0.8); Monocytes % (Auto) 8 % (0-12); Neutrophils # (Auto) 2.2 Thou/mm3 (1.8-7.7); Neutrophils % (Auto) 37 % (37-80); Nucleated Red Blood Cell % 0 /100 WBC (0); Platelet Count 193 Thou/mm3 (140-440); RDW Standard Deviation 37.3 fL (35.1-43.9); Red Blood Count 4.11 Miln/mm3 (4.50-5.90); White Blood Count 6.1 Thou/mm3 (3.8-10.6)
[2024-04-15] MEDS: INSULIN LISPRO (AdmeLOG) 1 UNIT/0.01 ML UNIT SC ×2 (07:19→11:25)
[2024-04-15 07:55] VITALS: PULSE 86; RESP 22; RESP 94
[2024-04-15 08:00] VITALS: BP 151/99; PULSE 78; PULSE 98; RESP 17; TEMP 36.1; O2SAT 99
[2024-04-15] MEDS: INSULIN GLARGINE (Lantus) 5 UNIT/0.05 ML (PER 5 UNITS) 15 UNIT SC (09:55)
[2024-04-15] MEDS: ENOXAPARIN SOD INJ 40 MG/0.4 ML SYRINGE SC (10:01)
--- NOTE | 2024-04-15 10:15 | PC.SS ---
Follow up note: Managing his diabetes. Dietitian consulting. Pt will return home upon dc.
[2024-04-15 11:17] VITALS: BMI 42.5
[2024-04-15 12:00] VITALS: BP 146/90; PULSE 93; PULSE 95; RESP 30; TEMP 36.6; O2SAT 98
--- NOTE | 2024-04-15 12:39 | PC.SS ---
SS met with patient regarding his d/c plan.? Pt is alert/oriented.? Pt was admitted for New Onset DM.? Pt confirmed demographic and contact information is correct on facesheet.? Pt resides with both parents.? 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 Pt ambulates independently without assistance or DME.? Pt is ok with all ADLs.? Patient?s pharmacy of choice [facility] Pt named his sister, Joanne Dominguez medical decision maker if he is unable.? Patient?s choice is to return home upon d/c.? Pt does not have an advance directive, SS offered, and pt declined.? Pt is a new diabetic.? Pt does not have glucometer or test strips.? Pt state he is not on dialysis.? Pt states his aunt, Erendira Garza is going to makes his appointment to establish a PCP in [place].? Pt states he follows up with different physicians at [facility].?? D/C plan:? Return home Next of Kin:? Joanne Elkinse, sister, phone# [phone] PCP:? [facility] Address:? Correct on facesheet
--- NOTE | 2024-04-15 13:00 | PC.CC ---
Request from Dr. Pierce for DM education and insulin training. Met w/ patient and father at bedside. Patient reports no Hx of DM prior to visit, and that his uncle checked his BG at home after discussing his symptoms. Patient is amenable to starting insulin upon discharge and is ready for change. He reports not having a PCP, but has received recommendations from family. Discussed DM diagnosis and need for insulin at this time. Demonstrated use of insulin pen and verified understanding via teach back. Demonstrated insulin injection technique. Patient able to successfully administer his scheduled mealtime insulin with SALLY Sánchez at bedside. Reviewed target FBG range and encouraged patient to focus on and work toward goal range over the next few months. Demonstrated use of glucometer and lancing device. Patient able to obtain successful reading with sample solution. Discussed role and use of CGM to guide nutrition and physical activity choices. Patient successfully downloaded and set up Pharm[employer] 3 cheyanne to his phone and will apply sample CGM with STEPH Cameron. Encouraged healthy nutrition choices i.e. substituting servings of regular soda and fruit juice. Encouraged use of CGM data to guide nutrition choices. Encouraged patient to establish with PCP within 3 weeks and to call for appointment today for hospital discharge with new IDDM. Emphasized importance of productive primary care for DM management. Explained role and use of discharge metformin. Pertinent questions were asked and answered. Hospitalist team updated on education at bedside with recommendation for basal only insulin at this time. Handoff given to STEPH Cameron, for CGM application and nutrition education.
--- NOTE | 2024-04-15 13:46 | PD.RESDS ---
Planned Discharge Date 04/15/24 DS: Providers Provider Date of admission: 04/14/24 19:48 Primary care physician: Physician No Primary/Family Admitting Provider: Javon Alba MD Attending Provider on Admission: Carlos Pierce MD Consults: 04/14/24 20:02 Consult Diabetic Routine Comment: Referral Registered Dietitian Routine Comment: Attending Provider on DC: Srinivas Guerrero MD Discharging Provider: Srinivas Guerrero MD DS: Diagnosis Problem List Completed Was Problem List Reviewed/Reconciled?: Yes Hospital Course Hospital Course Hospital course: 24 year old male patient with no PMHx presented to ED with complaint of dehydration, polydipsia, dizziness, generalized weakness and blurred vision. Vitals on admission were stable, initial labs on admission were noted glucose 431, AST 62, ALT 125, ALP 216, TG 267, BHB 3.6, normal VBG, in ED patient was given 1L of NS bolus and received 5 units of IV insulin, initially patient was started on DKA protocol blood was discontinued as patient's initial labs were not consistent with DKA. Patient was admitted to hospital floors for new onset diabetes requiring further management and care. Patient's blood glucose readings were monitored overnight and upon getting diabetic education and questions answered regarding his new diagnosis; patient will be discharged with the following strict instructions. Please use Insulin Lantus, 20 units every night Please take Metformin ER 500mg by mouth twice a day before meals Check your morning/fasting blood sugars and write down on a logsheet your results Follow-up with your PCP within 1 week for diabetic management; ask about GLP-1 medications Ask your PCP to follow-up with C-peptide levels to help differentiate between Type I and Type II Diabetes. If your symptoms worsen or if you develop new chest pain, shortness of breath, abdominal pain or dizziness - please come back to the ED immediately. Hospital Diagnosis: #New onset Diabetes Mellitus, insulin dependent #Morbid Obesity #Metabolic Dysfunction-Associated Steatotic Liver Disease #Hypertension #Hypertriglyceridemia Srinivas Guerrero, PGY-1 Status at Discharge Overall status at discharge: patient is progressing back to baseline Time Spent with Patient Time attestation: Total time spent providing and/or coordinating discharge services: 45 minutes Time spent: Greater than 30 minutes Exam Vital Signs Temp Pulse Resp BP Pulse Ox O2 Del Method 97.9 F 95 30 H 146/90 H 98 Room Air 04/15/24 12:00 04/15/24 12:00 04/15/24 12:00 04/15/24 12:00 04/15/24 12:00 04/15/24 12:00 Narrative Exam General: Morbidly obese, laying in bed, not in acute distress, answering questions appropriately, making appropriate eye contact HEENT: Normocephalic, atraumatic, EOMI, PERRLA, moist oral mucosa, normal dentition. Cardiac: Regular rate and rhythm, normal S1/S2, no murmurs. Lungs: Clear to auscultation with no wheezings or crackles, normal respiratory effort and rate. Abdomen: Soft, nontender, nondistended, positive bowel sounds in all quadrants. No guarding or rebound tenderness. Neuro: Alert and oriented to name and date of and place. CN II- XII intact, no focal motor deficit noted, BUE/BLE motor function and sensation intact and equal. Extremities: Normal to inspection, no edema, no cyanosis Psych: Normal mood and affect. Discharge Plan Plan Patient Disposition: HOME (Self Care) Patient condition on transfer: Stable Care Plan Goals: Please use Insulin Lantus, 20 units every night Please take Metformin ER 500mg by mouth twice a day before meals Check your morning/fasting blood sugars and write down on a logsheet your results Follow-up with your PCP within 1 week for diabetic management; ask about GLP-1 medications Ask your PCP to follow-up with C-peptide levels to help differentiate between Type I and Type II Diabetes. If your symptoms worsen or if you develop new chest pain, shortness of breath, abdominal pain or dizziness - please come back to the ED immediately. Prescriptions/Referrals Prescriptions/Med Rec: New (DME) lancets 17 gauge misc See Rx Instructions .Route Qty: 100 0RF Rx Instructions: As directed (DME) pen needle, diabetic 30 gauge x 5/16 needle See Rx Instructions .Route Qty: 1200 0RF Rx Instructions: Use once daily (DME) FreeStyle Ashlee 3 Plus Sensor Device See Rx Instructions .Route Qty: 2 3RF Rx Instructions: As directed insulin glargine [Lantus Solostar U-100 Insulin] 100 unit/mL (3 mL) insulin pen 20 unit subcut HS Qty: 15 3RF metformin 500 mg tablet extended release 24 hr 500 mg PO BID 30 Days Qty: 60 0RF (DME) FreeStyle Ashlee 3 Effie Misc See Rx Instructions .Route Qty: 1 0RF Rx Instructions: As directed (DME) blood-glucose meter Kit See Rx Instructions .Route Qty: 1 0RF Rx Instructions: As directed (DME) Blood Glucose Test Strip See Rx Instructions .Route Qty: 50 3RF Rx Instructions: As directed Referrals: No Primary/Family,Physician [Primary Care Provider] - Patient/Caregiver Discharge Instructions Other Discharge Diet Instructions: Focus on non-starchy vegetables: Fill at least half of your plate with vegetables, such as broccoli, spinach, and carrots. Choose whole grains: Opt for whole-wheat bread, brown rice, quinoa, and oats. Include lean protein: Consume lean meats, fish, eggs, beans, and tofu. Select healthy fats: Choose fats from sources like nuts, seeds, avocado, and olive oil. Limit sugary drinks and processed foods: Avoid sugary sodas, juices, candy, and pastries. Moderate carbohydrate intake: Pay attention to the amount of carbohydrates you consume and choose lower-glycemic index options. Consider a Mediterranean-style diet: This diet emphasizes fruits, vegetables, whole grains, fish, and olive oil. Sample Meal Plan: Breakfast: Oatmeal with berries and nuts Lunch: Salad with grilled chicken or fish, vegetables, and a low-fat dressing Dinner: [place] with roasted vegetables and brown rice Snacks: [place] yogurt with fruit, trail mix, or vegetable sticks with hummus Education Materials: How to Check Your Blood Sugar, Insulin How to Use and Where to Inject, Diabetes: Living Your Life, Diabetes Exercise Plan, Diabetes Carbs Fats Protein Print Language: Arabic Stand Alone Forms: Paola Award Info., Patient Portal Info Letter Discharge Order Discharge Orders: Discharge (Routine); Ordered 04/15/24 Ordered By: Silvia Arellano Quality Discharge Quality Measures VTE prophylaxis Attestestation MD Attestation I have examined the patient, reviewed labs and imaging findings, discussed the case with the resident(s), and reviewed entered orders. I agree with the plan of care as outlined in this note. Dr. Stan MD
[2024-04-15 16:00] VITALS: BP 133/90; PULSE 88; PULSE 93; RESP 18; TEMP 36.2; O2SAT 99
--- NOTE | 2024-04-16 11:04 | PC.CC ---
Request from GEROGI Leong, to follow-up on insulin not dispensed to patient by pharmacy. S/W Anastasiya Lee - they had not billed the insulin as Lantus Solostar, which is required by the Rx plan. Anastasiya Lee confirmed Lantus Solostar covered and are getting the Rx ready for patient. Updated patient via phone. His BG so far today has ranged 140-260.
[2024-04-19 06:38] LABS: C-Peptide* 1.21 ng/mL (0.80-3.85)
== END 2024-04-15 16:00 | disposition home or self-care (01) ==
LOC: SERX 18:52 → S2NX 04-15 06:22 → SERHOLD 04-16 06:00 → S2NX 04-16 06:01
PROVIDERS: Emergency Medicine; Nurse Practitioner Primary Care; Student in an Organized Health Care Education/Training Program; Admitting Provider Internal Medicine; Emergency Provider Emergency Medicine; Visit Provider Student in an Organized Health Care Education/Training Program
DX: E11.65 Type 2 diabetes mellitus with hyperglycemia (principal); K76.0 Fatty (change of) liver, not elsewhere classified; E78.1 Pure hyperglyceridemia; E86.0 Dehydration; E66.01 Morbid (severe) obesity due to excess calories; I10 Essential (primary) hypertension; Z68.41 Body mass index [BMI] 40.0-44.9, adult
CPT/HCPCS: 36415; 76705; 80053; 80069; 81001; 82010; 82803; 83036; 84478; 84681; 85025; 96360; 96361; 96372; 99285; G0378; J1650; J1815; J7030; J7120

== ENCOUNTER 2024-11-11 15:45 | Emergency (ER) | payer BC, SELFPAY ==
[2024-11-11 15:46] VITALS: BMI 24.0
[2024-11-11 16:04] VITALS: BP 135/88; PULSE 74; RESP 18; TEMP 37.8; O2SAT 96
--- NOTE | 2024-11-11 16:12 | XR_ITS ---
Examination: CT brain head without contrast. 2-D sagittal coronal reconstructions Date and time of exam:November 11, 2024, 1738 hrs. Indications: Generalized headaches and onset dizziness today CTDI: vol (mGy):57.1 DLP: (mGycm):1134 Technique: Multiple CT axial sections of the brain have been obtained, 5 mm slice thickness. Contrast has not been administered. 2-D sagittal, coronal reconstructions have been obtained Low dose protocols were performed. One or more of the following dose reduction techniques were used; automated exposure control, adjustment of the mA and/or KV according to patient size, use of iterative reconstruction technique. Findings: No significant ventricular enlargement. Intra-axial or extra-axial hemorrhage density is not seen. No mass effect or midline shift Basal cisterns are not remarkable. Fourth ventricle is midline. Cranial vault intact. Impression: Negative for acute hemorrhage, mass effect or midline shift
--- NOTE | 2024-11-11 16:12 | EKG_ITS ---
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
--- NOTE | 2024-11-11 16:13 | PD.EDRME ---
Rapid Medical Screening Exam RME Arrival date/time: 11/11/24 15:45 This is a case of a 24-year-old male with no medical history came in in the emergency room due to headache and dizziness on and off for 4 months worsening of the symptoms this patient decided to start consult here in the emergency room Chief Complaint: Abdominal Pain Time Seen by Provider: 11/11/24 15:55 Vital signs: Vital Signs Temperature 100.1 F 11/11/24 16:04 Pulse Rate 74 11/11/24 16:04 Respiratory Rate 18 11/11/24 16:04 Blood Pressure 135/88 H 11/11/24 16:04 Pulse Oximetry (%) 96 11/11/24 16:04 Oxygen Delivery Method Room Air 11/11/24 16:04
[2024-11-11 17:20] LABS: Basophils # (Auto) 0.0 Thou/mm3 (0.0-0.2); Basophils % (Auto) 1 % (0-2.5); Eosinophils # (Auto) 0.1 Thou/mm3 (0.0-0.5); Eosinophils % (Auto) 1 % (0-10); Hematocrit 45.0 % (41.0-53.0); Hemoglobin 15.1 g/dL (13.5-16.0); Immature Granulocytes Auto 0.02 Thou/mm3 (0.00-0.00); Lymphocytes # (Auto) 1.4 Thou/mm3 (1.0-4.8); Lymphocytes % (Auto) 23 % (10-50); Mean Corpuscular HGB Conc 33.6 g/dl (31.0-37.0); Mean Corpuscular Hemoglobin 28.7 pg (25.0-35.0); Mean Corpuscular Volume 85 fL (80-100); Monocytes # (Auto) 0.3 Thou/mm3 (0.0-0.8); Monocytes % (Auto) 5 % (0-12); Neutrophils # (Auto) 4.5 Thou/mm3 (1.8-7.7); Neutrophils % (Auto) 70 % (37-80); Nucleated Red Blood Cell # 0.00 Thou/mm3 (0.00-0.00); Nucleated Red Blood Cell % 0 /100 WBC (0); Platelet Count 247 Thou/mm3 (140-440); RDW Standard Deviation 41.8 fL (35.1-43.9); Red Blood Count 5.27 Miln/mm3 (4.50-5.90); White Blood Count 6.3 Thou/mm3 (3.8-10.6)
[2024-11-11 17:35] LABS: Collection Type, Urine Clean Catch; Squamous Epithelial Cell,Urine 0 /hpf (0-5)
[2024-11-11 17:37] LABS: Alanine Aminotransferase 55 U/L (10-49); Albumin, Serum 5.2 gm/dL (3.5-5.0); Albumin/Globulin Ratio 1.7 (1.2-2.2); Alkaline Phosphatase 107 U/L (46-116); Anion Gap 11 (7-16); Aspartate Amino Transferase 28 U/L (0-34); BUN/Creatinine Ratio 10 Ratio (12-20); Bilirubin,Total 0.3 mg/dL (0.3-1.2); Blood Urea Nitrogen 9 mg/dL (9-23); Calcium 9.9 mg/dL (8.3-10.6); Calcium (Corrected) 9.9 mg/dL (8.5-10.1); Carbon Dioxide 26.1 mMol/L (20.0-31.0); Chloride 104 mMol/L (98-107); Creatinine (Component) 0.9 mg/dL (0.6-1.3); Estimated Creatinine Clearance 102.7 mL/min (>60); Globulin 3.0 gm/dL (2.3-3.5); Glucose 118 mg/dL (74-106); Osmolality,Calculated 280 (275-295); Potassium 3.9 mMol/L (3.4-5.1); Sodium 141 mMol/L (136-145); Total Protein 8.2 gm/dL (5.7-8.2); Troponin I < 0.002 ng/mL (0.0-0.045); eGFR > 60 See Note
[2024-11-11 18:23] LABS: Bilirubin,Urine Negative (Negative); Blood,Urine Negative (Negative); Clarity,Urine Clear (Clear/Hazy); Color,Urine Lt-Yellow (Lt Yel-Yel); Glucose, Urine Negative (Negative); Ketones,Urine 1+ (Negative); Leukocyte Esterase,Urine Negative (Negative); Nitrite,Urine Negative (Negative); PH,Urine 6.5 (5.0-7.0); Protein,Urine Trace (Neg - Trace); RBC,Urine < 1 /hpf (0-3); Specific Gravity,Urine 1.031 (1.001-1.035); Urobilinogen,Urine Negative mg/dL (0.0-1.0); WBC,Urine < 1 /hpf (0-5)
--- NOTE | 2024-11-11 19:03 | EDNOTE_ITS ---
ED Headache RME/HPI General Chief Complaint: Headache Stated Complaint: DIZZY, ABD PAIN, HEAD PAIN X MONTHS Time Seen by Provider: 11/11/24 15:55 Arrival date/time: 11/11/24 15:45 RME / HPI RME / HPI Narrative: 11/11/24 15:45 This is a case of a 24-year-old male with no medical history came in in the emergency room due to headache and dizziness on and off for 4 months worsening of the symptoms this patient decided to start consult here in the emergency room See [facility] for Dr. Kaba's HPI Documentation. Related Data Previous Rx's ?Medication ?Instructions ?Recorded blood sugar diagnostic (Blood #50 ea 04/15/24 Glucose Test strips) blood-glucose meter #1 ea 04/15/24 blood-glucose sensor (FreeStyle #2 ea 04/15/24 Ashlee 3 Plus Sensor device) blood-glucose,credit and collection manager,cont #1 ea 04/15/24 (FreeStyle Ashlee 3 [place]) insulin glargine 100 unit/mL (3 20 unit (0.2 mL) subcu t HS E11.65 04/15/24 mL) subcutaneous pen (Lantus #15 mL Solostar U-100 Insulin) lancets 17 gauge #100 ea 04/15/24 pen needle, diabetic 30 gauge x #1,200 ea 04/15/24 5/16 alprazolam 0.5 mg tablet (Xanax) 0.5 mg PO BID PRN anx iety #10 tabs 11/11/24 Allergies Allergy/AdvReac Type Severity Reaction Status Date / Time No Known Allergies Allergy Verified 04/14/24 14:54 Review of Systems Review of Systems Systems Reviewed: All systems reviewed, normal except as documented Past Medical History Past Medical History ENDOCRINE: Positive Diabetes Mellitus Type 1 and Diabetes Mellitus Type 2 (04/2024) Family History FAMILY HISTORY: Positive Family Cardiac Disorders (Hypertension) ED Exam Narrative Physical exam: See [facility] for Dr. Kaba's Physical Exam Documentation. Course Quality Measures none Orders Category Date Time Status EKG (ED ONLY) *Do not use* NOW Care 11/11/24 16:[address] head/brain wo con Stat Exams 11/11/24 16:12 Completed EKG (ED Only) Stat Exams 11/11/24 16:12 Draft CBC Stat Lab 11/11/24 16:44 Completed Comprehensive Metabolic Panel Stat Lab 11/11/24 16:44 Completed Troponin I Stat Lab 11/11/24 16:44 Completed Urinalysis Stat Lab 11/11/24 17:20 Completed Vital Signs Vital signs: Vital Signs Temperature 100.1 F 11/11/24 16:04 Pulse Rate 74 11/11/24 16:04 Respiratory Rate 18 11/11/24 16:04 Blood Pressure 135/88 H 11/11/24 16:04 Pulse Oximetry (%) 96 11/11/24 16:04 Oxygen Delivery Method Room Air 11/11/24 16:04 Headache MDM Narrative MDM Narrative:: This section includes all my notes and documentations, including HPI, PE, and ED course. Clarence Kaba MD HPI: 24 y/o male with recent Hx of Type II DM presents with several months of frequent episodes with multiple symptoms. Symptoms can include headache, intense fear, pounding and racing heart, sweating, chills, shaking, trouble breathing, chest pain, stomach pain, nausea, numbness and tingling in the hands and feet and face, confusion, hot flashes, and feeling faint. No other complaints. ROS: All negative except as documented in HPI. Physical Exam: General:? Alert and oriented.? No acute distress.?? Eyes:? Conjunctivae and lids clear.? EOMI.? PERRL. ENT:? No nasal congestion.? Pharynx normal.? Tympanic membrane normal bilaterally.??? Neck:? Supple.? No lymphadenopathy.? No JVD.?? Heart:? RRR.? Lungs:? No respiratory distress.? Good air movement.? No rhonchi, wheezing, rales.?? Chest:? No tenderness. Abdomen:? Soft and nontender.? Normal bowel sounds.? No distension.? No rebound or guarding.?? Back:? No CVA tenderness.?? Legs:? No clubbing, cyanosis, edema.? Skin:? Warm and dry.?? Neuro:? Alert and oriented X 3.? Cranial Nerves II-XII grossly intact.? No peripheral motor deficits. Musculoskeletal:? All major joints and bones are not tender with no limited ROM.? I reviewed all diagnostic test results: My interpretation of the EKG is sinus rhythm with no acute ST?T changes. My review of the Head/Brain CT report is: NAD. Blood tests and urine tests unremarkable. At this point, diagnoses include: Anxiety Recommended outpatient care. Based on my best medical judgment, made decision no further evaluation or treatment indicated at this time. Patient understands and agrees to the discharge instructions customized and printed, see below. Discharge instructions from Dr. Kaba: 1. After extensive evaluation, there is no life-threatening condition.? Such as stroke or brain tumor or heart attack. 2. Your symptoms may be due to underlying stress or anxiety or nerves.? This is fairly common. 3. Take Xanax as needed.? Whether this helps or not will be valuable information to your private doctors. 4. See a private doctor on 11/12/2024 for recheck. Ask to review all test results and official radiology reports, to make sure you receive all necessary follow-ups and monitoring. Ask to find the cause and treatment of your symptoms. With more care not available here in the ER. Such as MRI imaging of the brain and referral to see a neurologist. To make sure there is no serious underlying heart condition, ask to help you get more tests for your heart that cannot be done here in the ER.? Such as Holter Monitor (cardiac monitoring at home from a day to even a month), heart stress test (on treadmill or with medication), echocardiogram (imaging of your heart structures), heart catherization (checking for blockages in your heart arteries), and a referral to see a Line Erector. 5. Seek immediate medical care with worsening or with any concerns.?? Clarence Kaba MD Patient data External records reviewed:: [facility] previous records (Reviewed prior ED records from 04/14/24. Patient was seen for Newly diagnosed diabetes.) Clinical information provided by:: patient Social determinants that could affect healthcare access:: none Patient has the following chronic illnesses:: Type II DM How is presenting disease/condition affected by chronic disease/condition?: exacerbated by Evaluation data The following diagnostics were reviewed and interpreted by me:: lab results, radiology exam(s) and EKG tracing(s) Lab and/or radiology exams considered but not ordered:: None Interpretation Summary: I reviewed all diagnostic test results: My interpretation of the EKG is sinus rhythm with no acute ST?T changes. My review of the Head/Brain CT report is: NAD. Blood tests and urine tests unremarkable. Medications / Prescriptions Medications or Prescriptions considered but not ordered:: None Medication administrations:: None Consultations Consultation(s) initiated? (list below): No Diagnosis Differential diagnosis headache: migraine, tension headache, headache, meningitis and sinusitis Most likely diagnosis given after review of the tests above:: Anxiety Admission Indicated Admission indicated?: not indicated Explain why admission is indicated or not indicated:: With no condition needing emergent intervention, there was no indication for admission. Admission Request Was there a request for admission?: No Disposition Plan Disposition Plan: Discharge Discharge Attestation Discharge Attestation: The patient and all family members were given an opportunity to ask questions and understood the discharge instructions. Discharge instructions specifically effects, indications for sooner follow up or return to the emergency department, and the expected course of current diagnosis. Patient condition: Stable Discharge Plan Plan Patient Disposition: HOME (Self Care) Prescriptions/Referrals Prescriptions/Med Rec: New alprazolam [Xanax] 0.5 mg tablet 0.5 mg PO BID PRN (Reason: anxiety) Qty: 10 0RF No Action (DME) lancets 17 gauge misc See Rx Instructions .Route Qty: 100 0RF Rx Instructions: As directed (DME) pen needle, diabetic 30 gauge x 5/16 needle See Rx Instructions .Route Qty: 1200 0RF Rx Instructions: Use once daily (DME) FreeStyle Ashlee 3 Plus Sensor Device See Rx Instructions .Route Qty: 2 3RF Rx Instructions: As directed insulin glargine [Lantus Solostar U-100 Insulin] 100 unit/mL (3 mL) insulin pen 20 unit subcut HS Qty: 15 3RF (DME) FreeStyle Ashlee 3 [place] Misc See Rx Instructions .Route Qty: 1 0RF Rx Instructions: As directed (DME) blood-glucose meter Kit See Rx Instructions .Route Qty: 1 0RF Rx Instructions: As directed (DME) Blood Glucose Test Strip See Rx Instructions .Route Qty: 50 3RF Rx Instructions: As directed Referrals: No Primary/Family,Physician [Primary Care Provider] - In 1 week Problem List Clinical Impression: Headache Patient/Caregiver Discharge Instructions Discharge Activity: activity as tolerated Education Materials: ED Anxiety Reaction Additional Instructions: Discharge instructions from Dr. Kaba: 1. After extensive evaluation, there is no life-threatening condition.? Such as stroke or brain tumor or heart attack. 2. Your symptoms may be due to underlying stress or anxiety or nerves.? This is fairly common. 3. Take Xanax as needed.? Whether this helps or not will be valuable information to your private doctors. 4. See a private doctor on 11/12/2024 for recheck. Ask to review all test results and official radiology reports, to make sure you receive all necessary follow-ups and monitoring. Ask to find the cause and treatment of your symptoms. With more care not available here in the ER. Such as MRI imaging of the brain and referral to see a neurologist. To make sure there is no serious underlying heart condition, ask to help you get more tests for your heart that cannot be done here in the ER.? Such as Holter Monitor (cardiac monitoring at home from a day to even a month), heart stress test (on treadmill or with medication), echocardiogram (imaging of your heart structures), heart catherization (checking for blockages in your heart arteries), and a referral to see a Line Erector. 5. Seek immediate medical care with worsening or with any concerns.?? Print Language: Kyrgyz Stand Alone Forms: [facility] Award Info., Patient Portal Info Letter
== END 2024-11-11 19:49 | disposition home or self-care (01) ==
PROVIDERS: Nurse Practitioner Family; Emergency Provider Emergency Medicine
DX: R51.9 Headache, unspecified (principal); R42 Dizziness and giddiness; R94.31 Abnormal electrocardiogram [ECG] [EKG]
CPT/HCPCS: 36415; 70450; 80053; 81001; 84484; 85025; 93005; 99284